=== PATIENT | male | born 1955 | race Caucasian/White ===

== ENCOUNTER 2024-11-05 14:15 | Inpatient (IN) | payer OTHER, MEDICAID, MEDICARE ==
[~2024-11-05] VITALS: Ht 167.6 cm; Wt 60.8 kg
[2024-11-05 14:23] VITALS: O2SAT 99
[2024-11-05 15:22] LABS: BASOPHILS % 0.8 % (0.0-2.0); EOSINOPHILS % 2.2 % (0.0-5.0); HEMATOCRIT. 27.8 % (42.0-52.0); HEMOGLOBIN. 9.3 g/dL (14.0-18.0); LYMPHOCYTES % 23.8 % (20.0-50.0); MEAN PLATELET VOLUME 8.8 fl (7.4-10.4); MONOCYTES % 7.1 % (2.0-8.0); NEUTROPHILS % 66.1 % (40.0-76.0); PLATELET 236 x1000/uL (130-400); RED BLOOD CELL COUNT 3.15 mill/uL (4.7-6.1); RED CELL DISTRIBUTION WIDTH 14.2 % (11.6-14.6)
[2024-11-05 15:39] LABS: UREA NITROGEN BLOOD 52 mg/dL (9-23)
[2024-11-05 15:53] LABS: CREATININE 7.6 mg/dL (0.6-1.3)
[2024-11-05 16:18] LABS: CLARITY URINE CLEAR (CLEAR); GLUCOSE URINE NEGATIVE (NEGATIVE); KETONES URINE NEGATIVE (NEGATIVE); LEUKOCYTE ESTERASE URINE NEGATIVE (NEGATIVE); NITRITE URINE NEGATIVE (NEGATIVE); OCCULT BLOOD URINE TRACE (NEGATIVE); PH URINE 6.0 (4.5-8.0); PROTEIN URINE 3+ (NEGATIVE); SPECIFIC GRAVITY URINE 1.013 (1.005-1.030); UROBILINOGEN URINE 0.2 E.U./dL (0.2-1.0)
[2024-11-05] MEDS: LABETALOL 5MG/ML 4ML INJ IV ONE (16:33)
[2024-11-05 16:56] LABS: COLOR URINE STRAW (YELLOW)
[2024-11-05 16:57] LABS: BACTERIA URINE NONE SEEN; RBC URINE NONE SEEN /hpf (0-2); RENAL EPITHELIAL CELLS URINE 1+ /lpf; SQUAMOUS EPITHELIAL CELL URINE RARE /lpf (RARE/1+)
[2024-11-05 16:58] LABS: MUCUS URINE 1+ /lpf (NONE/TRACE)
[2024-11-05] MEDS: HYDRALAZINE 20MG/ML VIAL IV ONE (17:47)
[2024-11-05 21:00] VITALS: BP 162/80; PULSE 82; RESP 14; TEMP 36.696
[2024-11-06] VITALS (8 sets, daily range): BP systolic 126–162; BP diastolic 58–77; PULSE 68–80; RESP 13–20; TEMP 36.4–36.9; O2SAT 96–100
[2024-11-06] MEDS ORDERED: ONDANSETRON HCL 4MG/2ML INJ IV PRN (06:15)
[2024-11-06] MEDS ORDERED: ACETAMINOPHEN 325MG TABLET PO PRN (06:15)
[2024-11-06] MEDS ORDERED: DEXTROSE 50% WATER 50ML SYRINGE IV PRN (06:15)
[2024-11-06] MEDS: SODIUM CHLORIDE 0.9% 1,000 ML IV SCH (06:47)
[2024-11-06] MEDS: BLOOD SUGAR DIAGNOSTIC STRIP TEST SCH (06:47)
[2024-11-06] MEDS: INSULIN LISPRO 100 UNITS/ML SUBCUT SCH (06:47)
[2024-11-06] MEDS: AMLODIPINE 10MG TABLET PO SCH (09:09)
[2024-11-06 09:49] LABS: HEPATITIS C AB NON REACTIVE (Neg) (Negative)
[2024-11-06 12:30] LABS: PLATELET 246 x1000/uL (130-400); RED BLOOD CELL COUNT 3.17 mill/uL (4.7-6.1); RED CELL DISTRIBUTION WIDTH 14.4 % (11.6-14.6)
[2024-11-06 12:37] LABS: TRIGLYCERIDE 103 mg/dL (0-150); UREA NITROGEN BLOOD 68 mg/dL (9-23)
[2024-11-06 12:38] LABS: LDL CHOLESTEROL 98 mg/dL (5-100)
[2024-11-06 12:39] LABS: BILIRUBIN TOTAL 0.2 mg/dL (0.1-1.0); PROTEIN TOTAL 5.5 g/dL (6.0-8.3)
[2024-11-06 12:49] LABS: ASPARTATE AMINOTRANSFERASE < 8 IU/L (<34)
[2024-11-06 12:50] LABS: CREATININE 7.9 mg/dL (0.6-1.3)
[2024-11-06] MEDS ORDERED: AMLO10TA80 PO (14:30)
[2024-11-07] VITALS: BP 136/70; PULSE 86; RESP 13; TEMP 36.9; O2SAT 100
[2024-11-07 04:00] VITALS: BP 123/55; PULSE 69; RESP 14; TEMP 36.6; O2SAT 99
[2024-11-07 08:00] VITALS: BP 157/92; PULSE 80; RESP 18; TEMP 36.4; O2SAT 100
[2024-11-07 12:00] VITALS: BP 136/67; PULSE 74; RESP 20; TEMP 36.4; O2SAT 100
[2024-11-07 16:00] VITALS: BP 129/65; PULSE 75; RESP 14; TEMP 36.7; O2SAT 100
[2024-11-07 20:00] VITALS: BP 146/76; PULSE 80; RESP 18; TEMP 36.6; O2SAT 100
[2024-11-07 22:17] LABS: UREA NITROGEN BLOOD 55.0 mg/dL (9-23)
[2024-11-07 22:19] LABS: PHOSPHORUS 5.4 mg/dL (2.5-4.9)
[2024-11-07 22:25] LABS: CREATININE 7.3 mg/dL (0.6-1.3)
[2024-11-08] VITALS (7 sets, daily range): BP systolic 136–163; BP diastolic 65–79; PULSE 69–76; RESP 15–20; TEMP 36.1–36.7; O2SAT 98–100
[2024-11-08] MEDS: CLONIDINE 0.1MG TABLET PO PRN (04:14)
[2024-11-09 09:07] LABS: COMPLEMENT C3 71 mg/dL (82-167); COMPLEMENT C4 18 mg/dL (12-38)
[2024-11-09 13:08] LABS: ANTI-NUCLEAR ANTIBODIES DIRECT Negative (Negative)
== END 2024-11-08 14:38 | disposition home or self-care (01) | DRG 683 ==
LOC: ER 14:51 → 3WST 16:18 → EDBEDREQTM 16:49 → EDBEDREQ 16:49 → ENRESERV 19:06 → ENRESERVTM 20:15 → CANRESERV 20:15 → ENRESERV 20:20
PROVIDERS: ADMIT Internal Medicine; ATTEND Internal Medicine
DX: N17.9 Acute kidney failure, unspecified (principal); E87.20 Acidosis, unspecified; D63.1 Anemia in chronic kidney disease; I12.9 Hypertensive chronic kidney disease with stage 1 through stage 4 chronic kidney disease, or unspecified chronic kidney disease; N18.9 Chronic kidney disease, unspecified; E11.22 Type 2 diabetes mellitus with diabetic chronic kidney disease; I16.0 Hypertensive urgency; E11.65 Type 2 diabetes mellitus with hyperglycemia
CPT/HCPCS: 36415; 71045; 76770; 80048; 80053; 80061; 81003; 82550; 82962; 83036; 83735; 84100; 84153; 84443; 85025; 85027; 86038; 86160; 86705; 87340; 99285; A4606; J0360; J1815; J3490; J7030